=== PATIENT | female | born 1965 | race Caucasian/White ===

== ENCOUNTER 2020-03-09 12:39 | Outpatient (REF) | payer OTHER, SELFPAY ==
--- NOTE | 2020-03-09 | MM_ITS ---
EXAMINATION: BONE DENSITOMETRY CLINICAL INDICATION: Other specified disorders of bone density and structure. COMPARISON: Baseline BD dated 03/08/2018. TECHNIQUE: Using a rumr DXA System (software version: 13.1) manufactured by [employer], dual-energy x-ray absorptiometry was performed of the lumbar spine and left hip. The images are of good technical quality. Summary results are attached. FINDINGS: AP SPINE L1-L4: Current: BMD 1.128 g/cm2, Z-score 0.3, T-score -0.4, normal, 1.5% decrease from baseline (<5% change is not significant). Baseline: BMD 1.145 g/cm2. LEFT FEMUR, NECK: Current: BMD 0.857 g/cm2, Z-score -0.4, T-score -1.3, osteopenia. Baseline: BMD 0.827 g/cm2. LEFT FEMUR, TOTAL: Current: BMD 0.931 g/cm2, Z-score 0.0, T-score -0.6, normal, 11.6% increase from baseline (<5% change is not significant). Baseline: BMD 0.834 g/cm2. IDENTIFIED RISK FACTORS: Menopause. HISTORY OF FRACTURE: None listed. MEDICATIONS: Vitamin D. MM/XR DEXA axial skeleton IMPRESSION: 1. DIAGNOSIS: Osteopenia based on the lowest T-score value of -1.3 in the femoral neck applying World Health Organization criteria. 2. 10-YEAR FRACTURE RISK PREDICTION, FRAX: Major osteoporotic fracture (clinical spine, forearm, hip or shoulder) 6.3%. Hip fracture 0.4%. 3. Treatment Recommendations: NOF guidelines recommend consideration for treatment in postmenopausal women and men age 50 and older presenting with the following: -A hip or vertebral (clinical or morphometric) fracture. -T-score less than or equal to -2.5 at the femoral neck or spine after appropriate evaluation to exclude secondary causes. -Low bone mass at the hip or spine and a 10-year fracture probability by FRAX of greater than or equal to 3% for hip fracture or greater than or equal to 20% for major osteoporotic fracture based on the [place] adapted WHO algorithm. 4. Other Recommendations: All treatment decisions require clinical judgment and consideration of individual patient factors, including patient preferences, comorbidities, previous drug use, risk factors not captured in the FRAX model (e.g. frailty, falls, vitamin D deficiency, increased bone turnover, interval significant decline in bone density) and possible under or overestimation of fracture risk by FRAX. Additional medical evaluation for secondary cause of low bone mineral density may be appropriate. FUTURE SCAN RECOMMENDATION: People with diagnosed cases of osteoporosis or at high risk for fracture should have regular bone mineral density tests. For patients eligible for Medicare, routine testing is allowed once every 2 years. The testing frequency can be increased to one year for patients who have rapidly progressing disease, those who are receiving or discontinuing medical therapy to restore bone mass, or have additional risk factors.
== END 2020-03-09 12:40 | disposition home or self-care (01) ==
LOC: HO.MAMMO 12:39
PROVIDERS: PCP Internal Medicine; Visit Provider Internal Medicine
DX: Z13.820 Encounter for screening for osteoporosis (principal); M85.851 Other specified disorders of bone density and structure, right thigh; M85.80 Other specified disorders of bone density and structure, unspecified site; Z78.0 Asymptomatic menopausal state; Z79.899 Other long term (current) drug therapy
CPT/HCPCS: 77080

== ENCOUNTER 2020-03-16 07:35 | Outpatient (REF) | payer OTHER, SELFPAY ==
--- NOTE | 2020-03-16 07:39 | MM_ITS ---
EXAMINATION: MM SCREENING DIGITAL BREAST TOMOSYNTHESIS, BILATERAL CLINICAL INFORMATION: Screening. Asymptomatic. The lifetime risk of breast cancer based on the Tyrer-Cuzick Model is 6.8%. COMPARISON: Mammography: 03/11/2019 and multiple previous mammograms dating back to 09/28/2011 TECHNIQUE: Digital breast tomosynthesis is performed in both the craniocaudal and mediolateral oblique views along with computer-aided detection (CAD). Synthesized 2-D images are generated from the tomosynthesis. FINDINGS: The breasts are heterogeneously dense, which may obscure small masses (ACR BI-RADS breast composition Category c). Left breast: No suspicious masses, calcifications, architectural distortion, or other abnormalities are seen. Right breast: A very small portion of the inferior breast on mediolateral oblique is not imaged. No suspicious masses, calcifications, architectural distortion, or other abnormalities are seen in the visualized breast. MM/MM tomosynthesis screening BI IMPRESSION: 1. No mammographic evidence of malignancy in the left breast. 2. Very small portion of the inferior right breast is not imaged on mediolateral oblique view. No mammographic evidence of malignancy in the remainder of the right breast. ASSESSMENT: BI-RADS 0: Incomplete - Need Additional Imaging Evaluation. RECOMMENDATION: Technical recall. Repeat right mediolateral oblique view which can be obtained utilizing 2-D technique.
== END 2020-03-16 07:36 | disposition home or self-care (01) ==
LOC: HO.MAMMO 07:35
PROVIDERS: PCP Internal Medicine; Visit Provider Internal Medicine
DX: Z12.31 Encounter for screening mammogram for malignant neoplasm of breast (principal)
CPT/HCPCS: 77063; 77067

== ENCOUNTER 2020-06-01 08:55 | Outpatient (REF) | payer OTHER, SELFPAY ==
[2020-06-04 11:53] LABS: HPV mRNA E6/E7 rflx Not Detected (Not Detected)
== END 2020-06-01 08:56 | disposition home or self-care (01) ==
LOC: HO.LAB 08:55
PROVIDERS: PCP Internal Medicine; Visit Provider Obstetrics & Gynecology
DX: Z01.419 Encounter for gynecological examination (general) (routine) without abnormal findings (principal); Z11.51 Encounter for screening for human papillomavirus (HPV)
CPT/HCPCS: 36415; 87624; 88141; 88142

== ENCOUNTER 2021-03-22 10:21 | Outpatient (REF) | payer OTHER, SELFPAY ==
[2021-03-22 10:23] LABS: MANUAL DIFF FLAG NO
[2021-03-22 10:44] LABS: Appearance Urine HAZY; Color Urine YELLOW; Glucose Urine UA NEG (NEG); Leukocyte Esterase Urine NEG (NEG); Nitrite Urine NEG (NEG); Urine Blood NEG (NEG); Urine Ketones NEG (NEG); Urine Protein NEG (NEG-TRACE)
[2021-03-22 11:02] LABS: Basophils Percent Auto 0.7 % (0-2); Eosinophils Absolute Auto 0.2 X10*3/uL (0.0-0.4); Eosinophils Percent Auto 2.7 % (0-4); Hematocrit 39.7 % (37.0-47.0); Hemoglobin 13.3 g/dl (12.0-16.0); Imm Gran Abs Auto 0.01 X10*3/uL (0.00-0.03); Imm Gran Pct Auto 0.2 % (0.0-0.4); Lymphocytes Absolute Auto 1.9 X10*3/uL (1.2-4.9); Lymphocytes Percent Auto 33.6 % (20-40); Mean Corpuscular HGB Conc 33.5 g/dl (31.0-35.0); Mean Corpuscular Hemoglobin 30.6 pg (27.0-33.0); Mean Corpuscular Volume 91.3 fL (80.0-98.0); Mean Platelet Volume 10.9 fL (9.4-12.3); Monocytes Absolute Auto 0.4 X10*3/uL (0.1-1.2); Monocytes Percent Auto 7.1 % (2-11); Neutrophils Absolute Auto 3.1 x10*3/uL (2.0-8.3); Neutrophils Percent Auto 55.7 % (45-73); Platelet Count 266 X10*3/uL (160-400); Red Blood Count 4.35 X10*6/uL (4.20-5.50); Red Cell Distribution Width 12.2 % (11.0-16.0); White Blood Count 5.6 X10*3/uL (4.8-10.8)
[2021-03-22 11:15] LABS: Alanine Aminotransferase 15 U/L (0-31); Albumin Level 4.3 g/dL (3.5-5.0); Alkaline Phosphatase 59 U/L (39-117); Anion Gap 15 (12-20); Aspartate Amino Transferase 18 U/L (5-31); Bilirubin Total 1.1 mg/dL (0.0-1.0); Blood Urea Nitrogen 11 mg/dL (9-16); Calcium 9.2 mg/dL (8.4-10.2); Carbon Dioxide 26 mmol/L (22-29); Chloride 106 mmol/L (96-108); Cholesterol 189 mg/dL; Estimated Glomerular Filt Rate > 60; Glucose Fasting 94 mg/dL (60-99); HDL Cholesterol 50 mg/dL; LDL Cholesterol Calculated 122 mg/dl; Potassium 4.5 mmol/L (3.3-5.1); Sodium 142 mmol/L (135-145); Total Protein 6.8 g/dL (6.5-8.0); Triglycerides 89 mg/dL
[2021-03-22 11:40] LABS: Vitamin D 25-OH Total 22.7 ng/mL (>30)
== END 2021-03-22 10:22 | disposition home or self-care (01) ==
LOC: HO.LNP 10:21
PROVIDERS: Visit Provider Internal Medicine
DX: Z00.00 Encounter for general adult medical examination without abnormal findings (principal); E55.9 Vitamin D deficiency, unspecified; R79.9 Abnormal finding of blood chemistry, unspecified
CPT/HCPCS: 80053; 80061; 81003; 82306; 85025

== ENCOUNTER 2021-06-02 08:17 | Outpatient (REF) | payer OTHER, SELFPAY ==
[2021-06-04 13:37] LABS: HPV mRNA E6/E7 rflx Not Detected (Not Detected)
== END 2021-06-02 08:18 | disposition home or self-care (01) ==
LOC: HO.LAB 08:17
PROVIDERS: PCP Internal Medicine; Visit Provider Obstetrics & Gynecology
DX: Z01.419 Encounter for gynecological examination (general) (routine) without abnormal findings (principal); Z11.51 Encounter for screening for human papillomavirus (HPV)
CPT/HCPCS: 87624; 88142

== ENCOUNTER 2021-06-10 10:51 | Outpatient (REF) | payer OTHER, SELFPAY ==
--- NOTE | ~2021-06-10 | MM_ITS ---
EXAMINATION: MM SCREENING DIGITAL BREAST TOMOSYNTHESIS, BILATERAL CLINICAL INFORMATION: Screening. Asymptomatic. The lifetime risk of breast cancer based on the Tyrer-Cuzick Model is 10.6%. COMPARISON: Mammography: March 16, 2020 and studies dating back to November 06, 2015 TECHNIQUE: Digital breast tomosynthesis is performed in both the craniocaudal and mediolateral oblique views along with computer-aided detection (CAD). Synthesized 2D images are generated from the tomosynthesis. FINDINGS: The breasts are heterogeneously dense, which may obscure small masses (ACR BI-RADS breast composition Category c). There are no significant masses, abnormal calcifications, or other abnormalities. MM/MM tomosynthesis screening BI IMPRESSION: There are no significant changes from prior study. ASSESSMENT: BI-RADS 1: Negative RECOMMENDATION: Routine annual mammography screening. This patient's information was entered into a reminder system with a target due date for their next mammogram.
== END 2021-06-10 10:52 | disposition home or self-care (01) ==
LOC: HO.MAMMO 10:51
PROVIDERS: PCP Internal Medicine; Visit Provider Obstetrics & Gynecology
DX: Z12.31 Encounter for screening mammogram for malignant neoplasm of breast (principal)
CPT/HCPCS: 77063; 77067

== ENCOUNTER 2022-01-14 11:19 | Outpatient (REF) | payer OTHER, SELFPAY ==
[2022-01-14 12:18] LABS: Vitamin D 25-OH Total 63.6 ng/mL (>30)
== END 2022-01-14 11:20 | disposition home or self-care (01) ==
LOC: HO.LNP 11:19
PROVIDERS: Visit Provider Internal Medicine
DX: E55.9 Vitamin D deficiency, unspecified (principal)
CPT/HCPCS: 82306

== ENCOUNTER 2022-04-22 12:09 | Outpatient (REF) | payer OTHER, SELFPAY ==
[2022-04-22 12:13] LABS: MANUAL DIFF FLAG NO
[2022-04-22 13:01] LABS: Basophils Percent Auto 0.8 % (0-2); Eosinophils Absolute Auto 0.2 X10*3/uL (0.0-0.4); Hematocrit 38.5 % (37.0-47.0); Hemoglobin 12.7 g/dl (12.0-16.0); Imm Gran Abs Auto 0.01 X10*3/uL (0.00-0.03); Imm Gran Pct Auto 0.2 % (0.0-0.4); Lymphocytes Absolute Auto 1.9 X10*3/uL (1.2-4.9); Lymphocytes Percent Auto 36.9 % (20-40); Mean Corpuscular Hemoglobin 29.7 pg (27.0-33.0); Mean Platelet Volume 10.5 fL (9.4-12.3); Monocytes Absolute Auto 0.5 X10*3/uL (0.1-1.2); Monocytes Percent Auto 10.8 % (2-11); Neutrophils Absolute Auto 2.4 x10*3/uL (2.0-8.3); Neutrophils Percent Auto 47.3 % (45-73); Platelet Count 261 X10*3/uL (160-400); Red Blood Count 4.28 X10*6/uL (4.20-5.50); Red Cell Distribution Width 12.7 % (11.0-16.0)
[2022-04-22 13:05] LABS: Appearance Urine Clear; Color Urine Yellow; Glucose Urine UA Negative (Negative); Leukocyte Esterase Urine Negative (Negative); Nitrite Urine Negative (Negative); PH 7.5 (5.0-9.0); Specific Gravity - Urine 1.015 (1.005-1.025); Urine Blood Negative (Negative); Urine Ketones Negative (Negative); Urine Protein Trace mg/dL (Neg-Trace)
[2022-04-22 13:16] LABS: Bacteria Urine 1+ (None Seen); Hyaline Casts Urine 0-2 /LPF (0-2); WBC Urine 0-5 /HPF (0-5)
[2022-04-22 16:55] LABS: Alanine Aminotransferase 13 U/L (0-31); Albumin Level 4.3 g/dL (3.5-5.0); Alkaline Phosphatase 59 U/L (39-117); Anion Gap 10 (12-20); Aspartate Amino Transferase 19 U/L (5-31); Blood Urea Nitrogen 15 mg/dL (9-16); Calcium 9.2 mg/dL (8.4-10.2); Carbon Dioxide 30 mmol/L (22-29); Chloride 104 mmol/L (96-108); Cholesterol 197 mg/dL; Estimated Glomerular Filt Rate > 60; Glucose Fasting 91 mg/dL (60-99); HDL Cholesterol 50 mg/dL; LDL Cholesterol Calculated 131 mg/dl; Potassium 4.1 mmol/L (3.3-5.1); Sodium 140 mmol/L (135-145); Total Protein 6.5 g/dL (6.5-8.0); Triglycerides 82 mg/dL
== END 2022-04-22 12:10 | disposition home or self-care (01) ==
LOC: HO.LNP 12:09
PROVIDERS: Visit Provider Internal Medicine
DX: Z00.00 Encounter for general adult medical examination without abnormal findings (principal); R03.0 Elevated blood-pressure reading, without diagnosis of hypertension; E55.9 Vitamin D deficiency, unspecified
CPT/HCPCS: 80053; 80061; 81001; 82306; 85025

== ENCOUNTER 2022-04-26 11:32 | Outpatient (REF) | payer OTHER, SELFPAY ==
[2022-04-26 12:21] LABS: Appearance Urine Clear; Color Urine Yellow; Glucose Urine UA Negative (Negative); Leukocyte Esterase Urine Trace (Negative); Nitrite Urine Negative (Negative); PH 7.5 (5.0-9.0); Specific Gravity - Urine <= 1.005 (1.005-1.025); UMIC TRIGGER UA YES; Urine Blood Negative (Negative); Urine Ketones Negative (Negative); Urine Protein Negative (Neg-Trace)
[2022-04-26 12:25] LABS: Bacteria Urine Trace (None Seen); Hyaline Casts Urine 0-2 /LPF (0-2); RBC Urine 0-2 /HPF (0-2); WBC Urine 0-5 /HPF (0-5)
== END 2022-04-26 11:33 | disposition home or self-care (01) ==
LOC: HO.LNP 11:32
PROVIDERS: Visit Provider Internal Medicine
DX: R31.9 Hematuria, unspecified (principal)
CPT/HCPCS: 81001

== ENCOUNTER → 2022-06-06 08:15 | Outpatient (BNVA) | payer OTHER, SELFPAY | PROVIDERS: PCP Internal Medicine; Visit Provider Obstetrics & Gynecology | DX: Z13.89 Encounter for screening for other disorder (principal) ==

== ENCOUNTER 2022-06-14 10:29 | Outpatient (REF) | payer OTHER, SELFPAY ==
--- NOTE | ~2022-06-14 | MM_ITS ---
EXAMINATION: MM SCREENING DIGITAL BREAST TOMOSYNTHESIS, BILATERAL CLINICAL INFORMATION: Screening. Asymptomatic. The lifetime risk of breast cancer based on the Tyrer-Cuzick Model is 10%. COMPARISON: Mammography: 06/10/2021, 04/13/2020, 03/11/2019, 12/08/2017, 11/22/2016 TECHNIQUE: Digital breast tomosynthesis is performed in both the craniocaudal and mediolateral oblique views along with computer-aided detection (CAD). Synthesized 2D images are generated from the tomosynthesis. FINDINGS: The breasts are heterogeneously dense, which may obscure small masses (ACR BI-RADS breast composition Category c). There are no significant masses, abnormal calcifications, or other abnormalities. There are scattered parenchymal asymmetries similar to prior studies. No developing density or architectural abnormality. The axilla are unremarkable. No significant changes. MM/MM tomosynthesis screening BI IMPRESSION: No mammographic evidence of malignancy. ASSESSMENT: BI-RADS 2: Benign RECOMMENDATION: Routine annual mammography screening. This patient's information was entered into a reminder system with a target due date for their next mammogram.
== END 2022-06-14 10:30 | disposition home or self-care (01) ==
LOC: HO.MAMMO 10:29
PROVIDERS: PCP Internal Medicine; Visit Provider Internal Medicine
DX: Z12.31 Encounter for screening mammogram for malignant neoplasm of breast (principal)
CPT/HCPCS: 77063; 77067

== ENCOUNTER 2023-04-21 10:50 | Outpatient (REF) | payer OTHER, SELFPAY ==
[2023-04-21 10:54] LABS: MANUAL DIFF FLAG NO
[2023-04-21 11:07] LABS: Appearance Urine Clear; Color Urine Yellow; Glucose Urine UA Negative (Negative); Leukocyte Esterase Urine Negative (Negative); Nitrite Urine Negative (Negative); Urine Blood Negative (Negative); Urine Ketones Negative (Negative); Urine Protein Negative (Neg-Trace)
[2023-04-21 11:10] LABS: Basophils Absolute Auto 0.1 X10*3/uL (0.0-0.2); Basophils Percent Auto 1.3 % (0-2); Eosinophils Absolute Auto 0.2 X10*3/uL (0.0-0.4); Eosinophils Percent Auto 3.3 % (0-4); Hematocrit 39.5 % (37.0-47.0); Imm Gran Abs Auto 0.02 X10*3/uL (0.00-0.03); Imm Gran Pct Auto 0.4 % (0.0-0.4); Lymphocytes Absolute Auto 2.1 X10*3/uL (1.2-4.9); Lymphocytes Percent Auto 37.5 % (20-40); Mean Corpuscular HGB Conc 32.9 g/dl (31.0-35.0); Mean Corpuscular Hemoglobin 30.2 pg (27.0-33.0); Mean Corpuscular Volume 91.6 fL (80.0-98.0); Monocytes Absolute Auto 0.5 X10*3/uL (0.1-1.2); Monocytes Percent Auto 9.3 % (2-11); Neutrophils Absolute Auto 2.7 x10*3/uL (2.0-8.3); Neutrophils Percent Auto 48.2 % (45-73); Platelet Count 280 X10*3/uL (160-400); Red Blood Count 4.31 X10*6/uL (4.20-5.50); Red Cell Distribution Width 12.7 % (11.0-16.0); White Blood Count 5.5 X10*3/uL (4.8-10.8)
[2023-04-21 11:15] LABS: Bacteria Urine None Seen (None Seen); Hyaline Casts Urine 0-2 /LPF (0-2); RBC Urine 0-2 /HPF (0-2); Squamous Epithelial Cell Urine 0-2 /HPF (0-2); WBC Urine 0-5 /HPF (0-5)
[2023-04-21 11:28] LABS: Alanine Aminotransferase 10 U/L (0-31); Albumin Level 4.3 g/dL (3.5-5.0); Alkaline Phosphatase 56 U/L (39-117); Anion Gap 12 (12-20); Aspartate Amino Transferase 17 U/L (5-31); Blood Urea Nitrogen 14 mg/dL (9-16); Calcium 9.3 mg/dL (8.4-10.2); Carbon Dioxide 29 mmol/L (22-29); Chloride 106 mmol/L (96-108); Cholesterol 217 mg/dL (<200); Estimated Glomerular Filt Rate > 60; Glucose Fasting 93 mg/dL (60-99); HDL Cholesterol 57 mg/dL (>40); LDL Cholesterol Calculated 145 mg/dL (<100); Potassium 3.8 mmol/L (3.3-5.1); Sodium 143 mmol/L (135-145); Total Protein 6.9 g/dL (6.5-8.0); Triglycerides 78 mg/dL (<150)
[2023-04-21 11:31] LABS: Vitamin D 25-OH Total 42.6 ng/mL (>30)
== END 2023-04-21 10:51 | disposition home or self-care (01) ==
LOC: HO.LNP 10:50
PROVIDERS: Visit Provider Internal Medicine
DX: Z00.00 Encounter for general adult medical examination without abnormal findings (principal); E55.9 Vitamin D deficiency, unspecified; E03.0 Congenital hypothyroidism with diffuse goiter
CPT/HCPCS: 80053; 80061; 81001; 82306; 85025

== ENCOUNTER 2023-06-12 08:14 | Outpatient (AMB) | payer OTHER, SELFPAY ==
--- NOTE | 2023-06-12 08:17 | A.OFFVIS_ITS ---
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 No complaints. 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 Sexually active: Yes Sexual orientation: Straight/Heterosexual Gender identity: Female Female Reproductive History Menstrual Menopause type: natural Total pregnancies: 2 Full term: 2 Number of Living Children: 2 Date of last pap smear: 06/02/21 (neg pap and hpv) History of abnormal pap smear: Yes (02/18 lgsil 07/21 colpo shanon 1 06/03 +hov 07/04 colpo) Date of Mammogram: 06/14/22 (Birad 2) Review of Systems Const All systems reviewed & are unremarkable except as noted in HPI and below Card Reports as per HPI Resp Reports as per HPI GI Reports as per HPI and Reports no additional complaints Reports as per HPI Physical Exam Vital Signs: Last Vital Signs BP 138/76 06/12/23 08:19 BMI result Body Mass Index 26.7 Const General: cooperative, healthy appearing and comfortable Chest Chest palpation & inspection: normal inspection of the chest and normal palpation of entire chest wall Breast/axilla inspection: normal inspection of the breasts and normal inspection of the axillae Breast/axilla palpation: normal palpation of the breasts, normal palpation of the axillae and no axillary lymphadenopathy Resp Effort & Inspection: normal respiratory effort Auscultation: clear to auscultation bilaterally Percussion: percussion normal Cardio Palpation: normal PMI Rate: regular rate Rhythm: regular rhythm Heart sounds: no murmurs and no rubs Peripheral pulses: Peripheral pulses 2+ throughout GI Inspection: Yes normal to inspection Palpation (GI): Soft to palpation, nontender, no guarding, not rigid and No hepatosplenomegaly present Percussion: Yes normal to percussion Auscultation: normal bowel sounds Rectal Exam - Female: deferred General: Yes bladder normal to palpation External Female Exam: No lesion Speculum Exam - Vagina: normal appearance of the vagina, normal palpation, normal vaginal discharge and not erythematous Speculum Exam - Cervix: normal appearance of the cervix and normal palpation Bimanual exam- vagina & uterus: normal bimanual exam, normal palpation, uterine size normal, bladder normal to palpation, consistency normal and normal palpation Bimanual Exam- Adnexa, other: normal adnexae, no masses and no tenderness Assessment & Plan Assessment & Plan (1) Well woman exam: Code(s): Z01.419 - Encounter for gynecological examination (general) (routine) without abnormal findings Plan: Co testing not indicated this. Counseled the patient about the recommended dietary allowance of 1200 mg of Calcium & 600 IU of vitamin D. Mammogram ordered. The patient was instructed to perform monthly self-breast exams and schedule annual exam in a year. All questions answered and the patient verbalized understanding. Orders: Orders MM tomosynthesis screening BI Today Z12.31 - Encounter for screening mammogram for malignant neoplasm of breast Coding Level of Care Code Est Pt Prev Care 40-64y(89640) Diagnoses Well woman exam Z01.419
[2023-06-12 08:19] VITALS: BP 138/76; BMI 26.7
== END 2023-06-12 08:57 | disposition home or self-care (01) ==
PROVIDERS: PCP Internal Medicine; Visit Provider Obstetrics & Gynecology
DX: Z01.419 Encounter for gynecological examination (general) (routine) without abnormal findings (principal)
CPT/HCPCS: 99396

== ENCOUNTER → 2023-06-12 08:14 | Outpatient (BNVA) | payer OTHER, SELFPAY | PROVIDERS: Visit Provider Obstetrics & Gynecology ==

== ENCOUNTER 2023-06-20 10:24 | Outpatient (REF) | payer OTHER, SELFPAY ==
--- NOTE | ~2023-06-20 | MM_ITS ---
EXAMINATION: MM SCREENING DIGITAL BREAST TOMOSYNTHESIS, BILATERAL CLINICAL INFORMATION: Screening. Asymptomatic. COMPARISON: Mammography: This study is compared with prior exams dating back to 2018. TECHNIQUE: Digital breast tomosynthesis is performed in both the craniocaudal and mediolateral oblique views along with computer-aided detection (CAD). Synthesized 2D images are generated from the tomosynthesis. FINDINGS: The breasts are heterogeneously dense, which may obscure small masses (ACR BI-RADS breast composition Category c). There are no significant masses, abnormal calcifications, or other abnormalities. There are coarse benign calcifications associated with a subcentimeter, benign, oval mass in the deep third of the upper inner quadrant of the right breast. This mass is a fibroadenoma which is a benign entity. MM/MM tomosynthesis screening BI IMPRESSION: No mammographic evidence of malignancy. ASSESSMENT: BI-RADS BI-RADS 2 - Benign Findings RECOMMENDATION: Routine annual mammography screening. 1 year F/U This examination should not preclude the clinical evaluation of a suspicious palpable abnormality. This patient's information was entered into a reminder system with a target due date for their next mammogram.
== END 2023-06-20 10:25 | disposition home or self-care (01) ==
LOC: HO.MAMMO 10:24
PROVIDERS: PCP Internal Medicine; Visit Provider Internal Medicine
DX: Z12.31 Encounter for screening mammogram for malignant neoplasm of breast (principal)
CPT/HCPCS: 77063; 77067

== ENCOUNTER → 2023-06-20 10:45 | Outpatient (BNV) | payer OTHER, SELFPAY | PROVIDERS: PCP Internal Medicine; Visit Provider Radiology Diagnostic Radiology | DX: Z12.31 Encounter for screening mammogram for malignant neoplasm of breast (principal) | CPT/HCPCS: 77063; 77067 ==

== ENCOUNTER 2024-05-02 10:56 | Outpatient (REF) | payer OTHER, SELFPAY ==
--- OUTSIDE RECORDS SUMMARY | 2024-05-02 10:59 | XMS_ITS ---
Author Organization Nikhil Pozo MD Address [address] [place] [phone] Care Team Providers Care Field Identification Specialist Name Role Phone Nikhil Pozo Primary Care Provider ALLERGIES No Known Allergies REASON FOR VISIT 6 month BP MEDICATIONS Medication SIG (Take, Route, Frequency, Duration) Notes Start Date End Date Status Vitamin D3 25 MCG (1000 UT) TAKE 1 TABLET BY MOUTH EVERY DAY FOR 30 DAYS for 30 Active Meloxicam 15 MG 1 tablet Orally Once a day Active VITAL SIGNS BMI 27.43 kg/m2 10/30/2023 Blood pressure systolic 120 mm Hg 10/30/19 24 Blood pressure diastolic 80 mm Hg 024 Height 62 in 10/30/2023 Weight 150 lbs 10/30/2023 weight is up 4 pounds since 04-28-23 Encounters Encounter Location Date Provider Diagnosis Nikhil Pozo MD [address] [place] [address] [place] [phone] 10/30/2023 Nikhil Pozo Elevated BP without diagnosis of hypertension R03.0 ASSESSMENTS Encounter Date Diagnosis Assessment Notes Treatment Notes Treatment Clinical Notes 10/30/2023 Elevated BP without diagnosis of hypertension (ICD-10 - R03.0) blood pressure on no treatment is normal. no need for treatment at this time PLAN OF TREATMENT Treatment Notes Assessment Notes Elevated BP without diagnosi s of hypertension blood pressure on no treatment is normal . no need for treatment at this time Next Appt Details Provider Name:Nikhil hammond, 05/09/2024 09:30:00 AM, [address] [place] [address], Suite [facility], [place], [place], [phone], Progress Notes * Examination Category Sub-Category Detail Notes General Examination GENERAL APPEARANCE: alert, w ell hydrated, in no distress HEAD: normocephalic HEART: regular rate and rhy thm LUNGS: no wheezes, rales, r honchi, good air movement, clear to auscultation bilaterally SKIN: good turgor
--- OUTSIDE RECORDS SUMMARY | 2024-05-02 10:59 | XMS_ITS ---
Author Organization Nikhil Pozo MD Address [address] [place] [phone] Care Team Providers Care Senior Fire Protection Engineer Name Role Phone Nikhil Pozo Primary Care Provider REASON FOR VISIT yearly fasting labs Encounters Encounter Location Date Provider Diagnosis Nikhil Pozo MD [address] [place] [address] Drive [address] [place] [id number] 05/02/2024 Nikhil Pozo Blood tests for routine general physical examination Z00.00 and Vitamin D deficiency E55.9 ASSESSMENTS Encounter Date Diagnosis Assessment Notes Treatment Notes Treatment Clinical Notes 05/02/2024 Blood tests for routine general physical examination (ICD-10 - Z00.00) 05/02/2024 Vitamin D deficiency (ICD-10 - E55.9) PLAN OF TREATMENT Pending Test Test Name Order Date Complete Blood Count Auto Diff 4 Comprehensive [place]. Panel Fast 4 Lipid Panel 05/02/2024 Vitamin D 25-OH Total 05/02/2024 UA ClnCatch+Micro w/rflx Cult 05/02/2024 Next Appt Details Provider Name:Nikhil hammond, 05/09/2024 09:30:00 AM, [address] [facility], [address], [place], [place], [phone],
[2024-05-02 11:00] LABS: MANUAL DIFF FLAG NO
--- OUTSIDE RECORDS SUMMARY | 2024-05-02 11:00 | XMS_ITS ---
Author Organization Nikhil Pozo MD Address [address] [place] [phone] Care Team Providers Care Inhalation Therapy Aide Name Role Phone Nikhil Pozo Primary Care Provider REASON FOR VISIT refill MEDICATIONS Medication SIG (Take, Route, Frequency, Duration) Notes Start Date End Date Status Vitamin D-[address] 25 MCG (1000 UT) 1 tablet Orally Once a day for 30 days 03/12/2019 Active Encounters Encounter Location Date Provider Diagnosis Nikhil Pozo MD [address] [place] [address] [place] [phone] 05/19/2023 Nikhil Pozo Vitamin D deficiency E55.9 ASSESSMENTS Encounter Date Diagnosis Assessment Notes Treatment Notes Treatment Clinical Notes 05/19/2023 Vitamin D deficiency (ICD-10 - E55.9) PLAN OF TREATMENT Medication Medication Name Sig Start Date Stop Date Notes Vitamin D-[address] 25 MCG (1000 UT) 1 tablet Orally Once a day for 30 days 03/12/2019 Next Appt Details Provider Name:Nikhil Batista ier, 05/09/2024 09:30:00 AM, [address] [facility], Suite [facility], [place], [place], [phone],
--- OUTSIDE RECORDS SUMMARY | 2024-05-02 11:00 | XMS_ITS | Patient Health Record ---
Author Organization Nikhil Pozo MD Address [address] [place], [place] [phone] Care Team Providers Care Safety Clothing And Equipment Developer Name Role Phone Nikhil Pozo Primary Care Provider ALLERGIES No Known Allergies RESULTS Component Value Reference Range Notes MM tomosynthesis screening B I Reviewed date:07/16/2023 05:23:16 PM Interpretation: Performing Lab: Notes/Report: [address] [place] [address] Mammography Report Signed Patient: Dyaan Gordillo MR#: [id number] : 1965 Acct:[id number] Age/Sex: 57 / F ADM Date: 06/20/23 Loc: HO.MAMMO Attending Dr: Nikhil Pozo MD Ordering Physician: Nikhil Pozo MD Results: 2Be nign Findings Date of Service: 06/20/23 Follow Up: 1 Year From [facility] Mammogram Procedure(s): MM tomosynthesis screening BI Accession Number(s): [id number] cc: Nikhil Pozo MD EXAMINATION: MM SCREENING DIGITAL BREAST TOMOSYNTHESIS, BILATERAL CLINICAL INFORMATION: Screening. Asymptomatic. COMPARISON: Mammography: This study is compared with prior exams dating back to 2018. TECHNIQUE: Digital breast tomosynthesis is performed in both the craniocaudal and mediolateral oblique views along with computer-aided detection (CAD). Synthesized 2D images are generated from the tomosynthesis. FINDINGS: The breasts are heterogeneously dense, which may obscure small masses (ACR BI-RADS breast composition Category c). There are no significant masses, abnormal calcifications, or other abnormalities. There are coarse benign calcifications associated with a subcentimeter, benign, oval mass in the deep third of the upper inner quadrant of the right breast. This mass is a fibroadenoma which is a benign entity. MM/MM tomosynthesis screening BI IMPRESSION: No mammographic evidence of malignancy. ASSESSMENT: BI-RADS BI-RADS 2 - Benign Findings RECOMMENDATION: Routine annual mammography screening. 1 year F/U This examination should not preclude the clinical evaluation of a suspicious palpable abnormality. This patient's information was entered into a reminder system with a target due date for their next mammogram. 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 No Information MEDICATIONS Medication SIG (Take, Route, Frequency, Duration) Notes Start Date End Date Status Vitamin D3 25 MCG (1000 UT) TAKE 1 TABLET BY MOUTH EVERY DAY FOR 30 DAYS for 30 Active Meloxicam 15 MG 1 tablet Orally Once a day Active IMMUNIZATIONS Vaccine Route Administration Date Status Comme nts Fluarix Quadrivalent Unknown 01/23/2017 Administered at work [employer] Flu Vaccine Unknown 02/28/2018 Administered TDaP Unknown 03/01/2018 Administered Fluarix Quadrivalent Unknown 03/04/2019 Administered At work Tetanus Unknown 03/01/2018 Administered Fluarix Quadrivalent Unknown 03/12/2020 Administered SARS-COV-2 Pfizer Unknown 09/10/2020 Administered SARS-COV-2 Pfizer Unknown 10/01/2020 Administered Fluarix Quadrivalent Unknown 03/08/2021 Administered Tetanus Unknown 03/01/2018 Pending SOCIAL HISTORY Tobacco Use: Social History Observation Description Date Details (start date - stop date) Never Smoker NA - NA Sex Assigned At : Social History Observation Description Sex Assigned At Unknown Tobacco Use/Smoking Question Answer Notes Patient is a nonsmoker Additional Findings: Tobacco Non-User Cu rrent non-smoker, currently using no form of tobacco Alcohol Screen Question Answer Notes Did you have a drink containing alcohol in the p ast year? 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) Active confirmed 406599166 Problem Vitamin D deficiency (E55.9) Active confirmed Vitamin D deficiency (00719201) Problem Osteopenia determined by x-ray (M85.80) Active confirmed Osteopenia (disorder) (142356002) Problem Acute right-sided low back pain with right-sided sciatica (M54.41) Active confirmed Sciatica (93804843) VITAL SIGNS Blood pressure diastolic 80 mm Hg 10/30/2023 thea ght is up 4 pounds since 04-28-23 Height 62 in 10/30/2023 weight is up 4 pounds since 04-28-23 Blood pressure systolic 120 mm Hg 10/30/2023 weig ht is up 4 pounds since 04-28-23 Weight 150 lbs 10/30/2023 weight is up 4 pounds since 04-28-23 BMI 27.43 kg/m2 10/30/2023 weight is up 4 pounds since 04-28-23 Encounters Encounter Location Date Provider Diagnosis Nikhil Pozo MD [address] [place] [id number] 05/02/2024 Nikhil Pozo Blood tests for routine general physical examination Z00.00 and Vitamin D deficiency E55.9 [address] P[address] MD [address] [place] [id number] 10/30/2023 Nikhil Pozo Elevated BP without diagnosis of hypertension R03.0 Nikhil Pozo MD [address] [place] [id number] 05/19/2023 Nikhil Pozo Vitamin D deficiency E55.9 ASSESSMENTS Encounter Date Diagnosis Assessment Notes Treatment Notes Treatment Clinical Notes 05/02/2024 Blood tests for routine general physical examination (ICD-10 - Z00.00) 10/30/2023 Elevated BP without diagnosis of hypertension (ICD-10 - R03.0) blood pressure on no treatment is normal. no need for treatment at this time 05/19/2023 Vitamin D deficiency (ICD-10 - E55.9) 05/02/2024 Vitamin D deficiency (ICD-10 - E55.9) PLAN OF TREATMENT Pending Test Test Name Order Date Electrocardiogram (EKG) 03/01/2018 Complete Blood Count Auto Diff 4 Comprehensive [place]. Panel Fast 4 Lipid Panel 05/02/2024 Vitamin D 25-OH Total 05/02/2024 UA ClnCatch+Micro w/rflx Cult 05/02/2024 Future Test Test Name Order Date BONE DENSITY DEXA 03/10/2020 Next Appt Details Provider Name:Nikhilgigi Batista ier, 05/09/2024 09:30:00 AM, [address] [place] [address], [address], [place], [place], [phone], Insurance Providers Payer Name Payer Address Payer Phone Subscriber Number Group Number Insured Name Patient Relationship to Insured Coverage Start Date Coverage End Date [address] [facility] [place]OW [phone] [id number] Dyana Gordillo Self - patient is the insured MEDICAL (GENERAL) HISTORY Medical History History ICD Code had abnormal pap smear over 10 years ago bone density done 02/2018 - repeat 2 yea rs 07/29/[address] Estrada - juan pablo vogt 10 yrs
[2024-05-02 11:22] LABS: Appearance Urine Cloudy; Color Urine Yellow; Glucose Urine UA Negative (Negative); Leukocyte Esterase Urine Negative (Negative); Nitrite Urine Negative (Negative); Specific Gravity - Urine 1.015 (1.005-1.025); Urine Blood Negative (Negative); Urine Ketones Negative (Negative); Urine Protein Negative (Neg-Trace)
[2024-05-02 11:24] LABS: Basophils Percent Auto 0.8 % (0-2); Eosinophils Absolute Auto 0.2 X10*3/uL (0.0-0.4); Eosinophils Percent Auto 3.4 % (0-4); Hematocrit 39.1 % (37.0-47.0); Hemoglobin 13.2 g/dl (12.0-16.0); Imm Gran Abs Auto 0.01 X10*3/uL (0.00-0.03); Imm Gran Pct Auto 0.2 % (0.0-0.4); Lymphocytes Absolute Auto 2.1 X10*3/uL (1.2-4.9); Lymphocytes Percent Auto 42.3 % (20-40); Mean Corpuscular HGB Conc 33.8 g/dl (31.0-35.0); Mean Corpuscular Hemoglobin 31.3 pg (27.0-33.0); Mean Corpuscular Volume 92.7 fL (80.0-98.0); Mean Platelet Volume 10.6 fL (9.4-12.3); Monocytes Absolute Auto 0.5 X10*3/uL (0.1-1.2); Monocytes Percent Auto 9.2 % (2-11); Neutrophils Absolute Auto 2.2 x10*3/uL (2.0-8.3); Neutrophils Percent Auto 44.1 % (45-73); Platelet Count 287 X10*3/uL (160-400); Red Blood Count 4.22 X10*6/uL (4.20-5.50); Red Cell Distribution Width 12.8 % (11.0-16.0)
[2024-05-02 11:25] LABS: Bacteria Urine None Seen (None Seen); Hyaline Casts Urine 0-2 /LPF (0-2); RBC Urine 0-2 /HPF (0-2); Squamous Epithelial Cell Urine 0-2 /HPF (0-2); WBC Urine 0-5 /HPF (0-5)
[2024-05-02 11:41] LABS: Alanine Aminotransferase 16 U/L (0-31); Albumin Level 4.4 g/dL (3.5-5.0); Alkaline Phosphatase 62 U/L (39-117); Anion Gap 9 (12-20); Aspartate Amino Transferase 25 U/L (5-31); Bilirubin Total 1.1 mg/dL (0.0-1.0); Blood Urea Nitrogen 15 mg/dL (9-16); Calcium 9.1 mg/dL (8.4-10.2); Carbon Dioxide 30 mmol/L (22-29); Chloride 107 mmol/L (96-108); Cholesterol 220 mg/dL (<200); Estimated Glomerular Filt Rate > 60; Glucose Fasting 95 mg/dL (60-99); HDL Cholesterol 51 mg/dL (>40); LDL Cholesterol Calculated 147 mg/dL (<100); Potassium 4.1 mmol/L (3.3-5.1); Sodium 142 mmol/L (135-145); Total Protein 7.1 g/dL (6.5-8.0); Triglycerides 112 mg/dL (<150)
[2024-05-02 11:56] LABS: Vitamin D 25-OH Total 60.8 ng/mL (>30)
== END 2024-05-02 10:57 | disposition home or self-care (01) ==
LOC: HO.LNP 10:56
PROVIDERS: Visit Provider Internal Medicine
DX: Z00.00 Encounter for general adult medical examination without abnormal findings (principal); E55.9 Vitamin D deficiency, unspecified
CPT/HCPCS: 80053; 80061; 81001; 82306; 85025

== ENCOUNTER 2024-06-18 08:27 | Outpatient (REF) | payer OTHER, SELFPAY ==
[2024-06-27 15:12] LABS: HPV Genotype 16 Negative (Negative); HPV Genotype 18 Negative (Negative); HPV High Risk Negative (Negative)
== END 2024-06-18 08:28 | disposition home or self-care (01) ==
LOC: HO.LNP 08:27
PROVIDERS: PCP Internal Medicine; Visit Provider Obstetrics & Gynecology
DX: Z01.419 Encounter for gynecological examination (general) (routine) without abnormal findings (principal)
CPT/HCPCS: 87626; 88175

== ENCOUNTER 2024-06-18 08:27 | Outpatient (AMB) | payer OTHER, SELFPAY ==
--- NOTE | 2024-06-18 08:53 | MHC.OFFVIS ---
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 No complaints. 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 Sexual orientation: Straight/Heterosexual Gender identity: Female Female Reproductive History Menstrual Total pregnancies: 2 Full term: 2 Date of last pap smear: 06/02/21 (negative hpv, negative pap smear) Date of Mammogram: 06/20/23 (bi rad 2) Review of Systems Const All systems reviewed & are unremarkable except as noted in HPI and below Card Reports as per HPI Resp Reports as per HPI GI Reports as per HPI and Reports no additional complaints Reports as per HPI Physical Exam Const General: cooperative, healthy appearing and comfortable Chest Chest palpation & inspection: normal inspection of the chest and normal palpation of entire chest wall Breast/axilla inspection: normal inspection of the breasts and normal inspection of the axillae Breast/axilla palpation: normal palpation of the breasts, normal palpation of the axillae and no axillary lymphadenopathy Resp Effort & Inspection: normal respiratory effort Auscultation: clear to auscultation bilaterally Percussion: percussion normal Cardio Palpation: normal PMI Rate: regular rate Rhythm: regular rhythm Heart sounds: no murmurs and no rubs Peripheral pulses: Peripheral pulses 2+ throughout GI Inspection: Yes normal to inspection Palpation (GI): Soft to palpation, nontender, no guarding, not rigid and No hepatosplenomegaly present Percussion: Yes normal to percussion Auscultation: normal bowel sounds Rectal Exam - Female: deferred General: Yes bladder normal to palpation External Female Exam: No lesion Speculum Exam - Vagina: normal appearance of the vagina, normal palpation, normal vaginal discharge and not erythematous Speculum Exam - Cervix: normal appearance of the cervix and normal palpation Bimanual exam- vagina & uterus: normal bimanual exam, normal palpation, uterine size normal, bladder normal to palpation, consistency normal and normal palpation Bimanual Exam- Adnexa, other: normal adnexae, no masses and no tenderness Assessment & Plan Assessment & Plan (1) Well woman exam: Code(s): Z01.419 - Encounter for gynecological examination (general) (routine) without abnormal findings Category: Medical Plan: Co testing done. Counseled the patient about the recommended dietary allowance of 1200 mg of Calcium & 600 IU of vitamin D. Mammogram ordered. The patient was instructed to perform monthly self-breast exams and schedule annual exam in a year. All questions answered and the patient verbalized understanding. Orders: Orders MM tomosynthesis screening BI Today Z12.31 - Encounter for screening mammogram for malignant neoplasm of breast Coding Level of Care Code Est Pt Prev Care 40-64y(53950) Diagnoses Well woman exam Z01.419
== END 2024-06-18 09:27 | disposition home or self-care (01) ==
LOC: HO.HWS 08:27
PROVIDERS: PCP Internal Medicine; Visit Provider Obstetrics & Gynecology
DX: Z01.419 Encounter for gynecological examination (general) (routine) without abnormal findings (principal)
CPT/HCPCS: 99396; 99459

== ENCOUNTER 2024-07-09 07:34 | Outpatient (REF) | payer OTHER, SELFPAY ==
--- OUTSIDE RECORDS SUMMARY | 2024-07-09 07:36 | XMS_ITS ---
Author Organization Nikhil Pozo MD Address [address] [place] [address] [place] [phone] Care Team Providers Care Bilingual Call Center Representative Name Role Phone Nikhil Pozo Primary Care Provider [phone] Allergies No Known Allergies REASON FOR VISIT 6 month BP Medications Medication SIG (Take, Route, Frequency, Duration) Notes Start Date End Date Status Vitamin D3 25 MCG (1000 UT) TAKE 1 TABLET BY MOUTH EVERY DAY FOR 30 DAYS for 30 Active Meloxicam 15 MG 1 tablet Orally Once a day Active Vital Signs Blood pressure systolic 120 mm Hg 10/30/19 24 Blood pressure diastolic 80 mm Hg 024 Height 62 in 10/30/2023 Weight 150 lbs 10/30/2023 BMI 27.43 kg/m2 10/30/2023 weight is up 4 pounds since 04-28-23 Encounters Encounter Location Date Provider Diagnosis Nikhil Pozo MD [address] [place] [address] [place] [phone] 10/30/2023 Nikhil oPzo Elevated BP without diagnosis of hypertension R03.0 Assessments Encounter Date Diagnosis (ICD Code) Assessment Notes Treatment Notes Treatment Clinical Notes Section Notes 10/30/2023 Elevated BP without diagnosis of hypertension (ICD-10 - R03.0) blood pressure on no treatment is normal. no need for treatment at this time Plan Of Treatment Treatment Notes Assessment Notes Elevated BP without diagnosi s of hypertension blood pressure on no treatment is normal . no need for treatment at this time Next Appt Details Provider Name:Nikhil hammond, 05/06/2025 07:15:00 AM, [address] [place] [address], [place] [address], [place], [place], [phone], Provider Name:Nikhil Batista ier, 05/13/2025 09:30:00 AM, [address], [address], [place], [phone], Progress Notes * Dyana GORDILLO ADOB:1965 (58 yo F)Acc No.[id number]:10/30/2023 Progress Notes Patient:?Dyana Gordillo A Provider:?Nikhil Pozo MD :1965???Age:58 Y???Sex:Female D ate:10/30/2023 Address:[address] [place] [address] [facility] Subjective: * Chief Complaints: * ???6 month BP * HPI: ???Symptom(s):? patient is a 58 yo female here for 6 month follow up visit.. * ROS:?General/Constitutional:?Denies?Chills.?Denies?Fatigue.?Denies?Fever.?Denies?Headache.?ENT:?Patient denies?decreased sense of smell , any loss of taste , sore throat.?Denies?Sore throat.?Respiratory:?Denies?Cough.?Denies?Shortness of breath at rest.?Denies?Shortness of breath with exertion.?Cardiovascular:?Denies?Chest pain at rest.?Denies?Chest pain with exertion.?Denies?Dizziness.?Denies?Palpitations.?Denies?Shortness of breath.?Gastrointestinal:?Denies?Diarrhea.?Denies?Nausea.?Musculoskeletal:?Patient denies?muscle aches.?Peripheral Vascular:?Patient denies?red and blue toes.? * Medical History:? * Surgical History:? * Hospitalization/Major Diagno stic Procedure:? * Medications:?TakingMeloxicam 15 MG Tablet 1 tablet Orally Once a dayVitamin D3 25 MCG (1000 UT) Tablet TAKE 1 TABLET BY MOUTH EVERY DAY FOR 30 DAYS Medication List reviewed and reconciled with the patientTaking Meloxicam 15 MG Tablet 1 tablet Orally Once a dayTaking Vitamin D3 25 MCG (1000 UT) Tablet TAKE 1 TABLET BY MOUTH EVERY DAY FOR 30 DAYS Medication List reviewed and reconciled with the patient * Allergies:?N.K.D.A.yes[Aller gies Verified] Objective: * Vitals:?Ht: 62, Wt:150, BMI: 27.43, BP: 156/84,repeat:120/80, Repeat BP:120/80 weight is up 4 pounds since 04-28-23. * Examination: ???General Examination: ?GENERAL APPEARANCE:? alert, well hydrated, in no distress .?HEAD:? normocephalic.?SKIN:? good turgor.?HEART:? regular rate and rhythm.?LUNGS:? no wheezes, rales, rhonchi, good air movement, clear to auscultation bilaterally.? Assessment: * Assessment: 1.?Elevated BP without diagn osis of hypertension - R03.0 (Primary)? Plan: * Treatment: * Procedure Codes:? * * Sign off status: Completed true * Provider:?Nikhil Pozo MD Date:?0 10/30/2023 Generated for Tanesha tirado/Ibis/Manjuitting on:?07/09/2024 07:36 AM EST History and Physical Notes * HPI (History of Present Illness) Category Sub-Category Detail Notes Category Not es Symptom(s) patient is a 58 yo female here for 6 month follow up visit.. Examination Category Sub-Category Detail Notes Category Not es General Examination GENERAL APPEARANCE: alert, w ell hydrated, in no distress HEAD: normocephalic HEART: regular rate and rhy thm LUNGS: no wheezes, rales, r honchi, good air movement, clear to auscultation bilaterally SKIN: good turgor
--- OUTSIDE RECORDS SUMMARY | 2024-07-09 07:36 | XMS_ITS | Patient Health Record ---
Author Organization Nikhil Pozo MD Address [address] [place], [place] [phone] Care Team Providers Care Association Executive Name Role Phone Nikhil Pozo Primary Care Provider Allergies No Known Allergies Results Component Value Reference Range Notes Complete Blood Count Auto Di ff Reviewed date:05/02/2024 12:25:43 PM Interpretation: Performing Lab:[facility], [address] [place] [phone] Notes/Report: White Blood Count 5.0 4.8-10.8 X10*3/uL Red Blood Count 4.22 4.20-5.50 X10*6/uL Hemoglobin 13.2 12.0-16.0 g/dl Hematocrit 39.1 37.0-47.0 % Mean Corpuscular Volume 92.7 80.0-98.0 fL Mean Corpuscular Hemoglobin 31.3 27.0-33.0 pg Mean Corpuscular HGB Conc 33.8 31.0-35.0 g/dl Red Cell Distribution Width 12.8 11.0-16.0 % Platelet Count 287 160-400 X10*3/uL Mean Platelet Volume 10.6 9.4-12.3 fL Neutrophils Percent Auto 44.1 45-73 % Imm Gran Pct Auto 0.2 0.0-0.4 % Lymphocytes Percent Auto 42.3 20-40 % Monocytes Percent Auto 9.2 2-11 % Eosinophils Percent Auto 3.4 0-4 % Basophils Percent Auto 0.8 0-2 % NRBC Pct Auto 0.0 0.0-0.2 /100WBC Neutrophils Absolute Auto 2.2 2.0-8.3 x10*3/u L Imm Gran Abs Auto 0.01 0.00-0.03 X10*3/uL Lymphocytes Absolute Auto 2.1 1.2-4.9 X10*3/u L Monocytes Absolute Auto 0.5 0.1-1.2 X10*3/uL Eosinophils Absolute Auto 0.2 0.0-0.4 X10*3/u L Basophils Absolute Auto 0.0 0.0-0.2 X10*3/uL NRBC Abs Auto 0.000 0.0-0.012 X10*3/uL Comprehensive [place]. Panel Fa st Reviewed date:05/02/2024 12:19:37 PM Interpretation: Performing Lab:[facility], [address] [place] [phone] Notes/Report: Sodium 142 135-145 mmol/L Potassium 4.1 3.3-5.1 mmol/L Chloride 107 96-108 mmol/L Carbon Dioxide 30 22-29 mmol/L Anion Gap 9 12-20 Blood Urea Nitrogen 15 9-16 mg/dL Creatinine 0.83 0.5-1.4 mg/dL Estimated Glomerular Filt Rate > 60 Chronic Kidney Disease: Estimated GFR < 60 mL/min/1.73m2 Severe Kidney Disease: Estimated GFR < 15 mL/min/1.73m2 Glucose Fasting 95 60-99 mg/dL Calcium 9.1 8.4-10.2 mg/dL Bilirubin Total 1.1 0.0-1.0 mg/dL Aspartate Amino Transferase 25 5-31 U/L Alanine Aminotransferase 16 0-31 U/L Total Protein 7.1 6.5-8.0 g/dL Albumin Level 4.4 3.5-5.0 g/dL Alkaline Phosphatase 62 39-117 U/L Lipid Panel Reviewed date:05/02/2024 12:20:46 PM Interpretation: Performing Lab:[address] [phone] Notes/Report: Triglycerides 112 <150 mg/dL Desirable Triglyceride: less than 150 mg/dL Borderline High Triglyceride 150-199 mg/dL High Triglyceride: 200-499 mg/dL Very High Triglyceride: greater than or equal to 5OO mg/dL Cholesterol 220 <200 mg/dL Desirable Cholesterol: less than 200 mg/dL Borderline High Cholesterol: 200-239 mg/dL High Cholesterol: greater than 239 mg/dL LDL Cholesterol Calculated 147 <100 mg/dL Desirable LDL: less than 100 mg/dL Near Optimal/Above Optimal LDL: 110-129 mg/dL Borderline High LDL: 130-159 mg/dL High LDL: 160-189 mg/dL Very High LDL: greater than or equal to 190 mg/dL HDL Cholesterol 51 >40 mg/dL Desirable HDL: greater than 40 mg/dL Note: This HDL assay may give artificially low results in patients with liver disease. Vitamin D 25-OH Total Reviewed date:05/02/2024 12:19:16 PM Interpretation: Performing Lab:[address] [phone] Notes/Report: Vitamin D 25-OH Total 60.8 >30 ng/mL Health Based Reference Values* < 20 ng/mL Deficient 20-30 ng/mL Insufficient > 30 ng/mL Sufficient *Lorena ALMAGUER. N Engl J Med. 2007;357:266-280 Care must be taken in interpreting Vitamin D results from different laboratories and methodologies. Published data demonstrated that results from patients undergoing hemodialysis may show a negative bias when tested with various automated 25-OH vitamin D assays when compared to LC-MS/MS. When testing samples from patients whose predominant form of Vitamin D is Vitamin D2, such as patients receiving Vitamin D2 supplementation, results that are subtherapeutic should be confirmed with another method such as LC-MS/MS. UA ClnCatch+Micro w/rflx Cul t Reviewed date:05/02/2024 12:27:22 PM Interpretation: Performing Lab:[address] [phone] Notes/Report: Urine, Clean Catch Color Urine Yellow Appearance Urine Cloudy PH 7.0 5.0-9.0 Glucose Urine UA Negative Negative mg/dL Urine Blood Negative Negative Specific [place] - Urine 1.015 1.005-1.025 Urine Protein Negative Neg-Trace mg/dL Urine Ketones Negative Negative mg/dL Nitrite Urine Negative Negative Leukocyte Esterase Urine Negative Negative RBC Urine 0-2 0-2 /HPF WBC Urine 0-5 0-5 /HPF Squamous Epithelial Cell Urine 0-2 0-2 /HPF Bacteria Urine None Seen None Seen Hyaline Casts Urine 0-2 0-2 /LPF HPV High risk Reviewed date:06/27/2024 04:56:22 PM Interpretation: Performing Lab:[facility], [address] [place] [phone] Notes/Report: HPV High Risk Negative Negative HPV Genotype 16 Negative Negative HPV Genotype 18 Negative Negative HPV testing performed at [facility] (CLIA #[id number]), [address] [place] [id number]. Testing for HPV was performed using the [employer] system. The presence of HPV in the female genital tract is associated with a number of diseases, including cervical carcinoma. The HPV DNA high risk pool tests for HPV 31, 33, 35, 39, 45, 51, 52, 56, 58, 59, 66 and 68. The testing for HPV 16 and 18 genotypes has also been performed. A positive result indicates detection of nucleic acid sequences from one or more subtypes, whereas a negative result indicates such sequences were not detected. Reason For Referral No Information Medications Medication SIG (Take, Route, Frequency, Duration) Notes Start Date End Date Status Meloxicam 15 MG 1 tablet Orally Once a day Active Vitamin D3 25 MCG (1000 UT) TAKE 1 TABLET BY MOUTH EVERY DAY FOR 30 DAYS for 30 Active Immunizations Vaccine Route Administration Date Status Comme nts Fluarix Quadrivalent Unknown 01/23/2017 Administered at work [employer] Flu Vaccine Unknown 02/28/2018 Administered TDaP Unknown 03/01/2018 Administered Fluarix Quadrivalent Unknown 03/04/2019 Administered At work Tetanus Unknown 03/01/2018 Administered Fluarix Quadrivalent Unknown 03/12/2020 Administered SARS-COV-2 Pfizer Unknown 09/10/2020 Administered SARS-COV-2 Pfizer Unknown 10/01/2020 Administered Fluarix Quadrivalent Unknown 03/08/2021 Administered Tetanus Unknown 03/01/2018 Pending Social History Tobacco Use: Social History Observation Description Date Details (start date - stop date) Never Smoker NA - NA Tobacco Use/Smoking Question Answer Notes Patient is a nonsmoker Additional Findings: Tobacco Non-User Cu rrent non-smoker, currently using no form of tobacco Alcohol Screen Question Answer Notes Did you have a drink containing alcohol in the p ast year? 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 confirmed Problem Sciatica (72411405) Acute right-sided low back pain with right-sided sciatica (M54.41) Active confirmed Problem 794426645 Elevated BP without diagnosis of hypertension (R03.0) Active confirmed Problem Osteopenia (disorder) (713921137) Osteopenia determined by x-ray (M85.80) Active confirmed Vital Signs Blood pressure diastolic 84 mm Hg 05/09/2024 thea ght is down 2 pounds since 10-30-23 Height 62 in 05/09/2024 weight is down 2 pounds since 10-30-23 Blood pressure systolic 142 mm Hg 05/09/2024 weig ht is down 2 pounds since 10-30-23 Weight 148 lbs 05/09/2024 weight is down 2 pounds since 10-30-23 BMI 27.07 kg/m2 05/09/2024 weight is down 2 pounds since 10-30-23 Encounters Encounter Location Date Provider Diagnosis Nikhil Pozo MD [address] [place] [phone] 05/02/2024 Nikhil Pozo Blood tests for routine general physical examination Z00.00 and Vitamin D deficiency E55.9 Nikhil P[address] MD [address] [place] [phone] 10/30/2023 Nikhil Pozo Elevated BP without diagnosis of hypertension R03.0 Nikhil Pozo MD [address] [place] [id number] 05/09/2024 Nikhil Pozo Vitamin D deficiency E55.9 ; Annual physical exam Z00.00 ; Elevated BP without diagnosis of hypertension R03.0 and Depression screening Z13.31 Assessments Encounter Date Diagnosis (ICD Code) Assessment Notes Treatment Notes Treatment Clinical Notes Section Notes 05/02/2024 Blood tests for routine general physical examination (ICD-10 - Z00.00) 05/02/2024 Vitamin D deficiency (ICD-10 - E55.9) 10/30/2023 Elevated BP without diagnosis of hypertension (ICD-10 - R03.0) blood pressure on no treatment is normal. no need for treatment at this time 05/09/2024 Vitamin D deficiency (ICD-10 - E55.9) doing well on 1000 units, will continue current regiment 05/09/2024 Annual physical exam (ICD-10 - Z00.00) labs reviewed and discussed with patient 05/09/2024 Elevated BP without diagnosis of hypertension (ICD-10 - R03.0) will continue to monitor, slight high today 05/09/2024 Depression screening (ICD-10 - Z13.31) negative screen Plan Of Treatment Pending Test Test Name Order Date Electrocardiogram (EKG) 03/01/2018 Future Test Test Name Order Date BONE DENSITY DEXA 03/10/2020 Next Appt Details Provider Name:Nikhil Batista ier, 05/06/2025 07:15:00 AM, [address] [place] [address], [address], [phone], Provider Name:Nikhil Batista ier, 05/13/2025 09:30:00 AM, [address] [place] [address], [place] [address], [place], [place], [phone], Insurance Providers Payer Name Payer Address Payer Phone Subscriber Number Group Number Insured Name Patient Relationship to Insured Coverage Start Date Coverage End Date [facility] [address] [facility] [address] [place] [phone] [id number] Dyana Gordillo Self - patient is the insured Medical (General) History Medical History History ICD Code had abnormal pap smear over 10 years ago bone density done 02/2018 - repeat 2 yea rs 07/29/[address] Natalie vogt 10 yrs
--- OUTSIDE RECORDS SUMMARY | 2024-07-09 07:36 | XMS_ITS ---
Author Organization Nikhil Pozo MD Address [address] [place], [place] [phone] Care Team Providers Care Digital Publishing Specialist Name Role Phone Nikhil Pozo Primary Care Provider Results Component Value Reference Range Notes Complete Blood Count Auto Di ff Reviewed date:05/02/2024 12:25:43 PM Interpretation: Performing Lab:[facility], [address] [place] [phone] Notes/Report: White Blood Count 5.0 4.8-10.8 X10*3/uL [...] NRBC Abs Auto 0.000 0.0-0.012 X10*3/uL Comprehensive [place]. Panel Fa st Reviewed date:05/02/2024 12:19:37 PM Interpretation: Performing Lab:[facility], [address] [place] [phone] Notes/Report: Sodium 142 135-145 mmol/L Potassium 4.1 [...] Panel Reviewed date:05/02/2024 12:20:46 PM Interpretation: Performing Lab:[address] [phone] Notes/Report: Triglycerides 112 <150 mg/dL Desirable Triglyceride: [...] Total Reviewed date:05/02/2024 12:19:16 PM Interpretation: Performing Lab:[address] [phone] Notes/Report: Vitamin D 25-OH Total 60.8 >30 [...] t Reviewed date:05/02/2024 12:27:22 PM Interpretation: Performing Lab:[facility], [address] [place] [phone] Notes/Report: Urine, Clean Catch Color Urine Yellow Appearance Urine Cloudy PH 7.0 5.0-9.0 Glucose Urine UA Negative Negative mg/dL Urine Blood Negative Negative Specific [place] - Urine 1.015 1.005-1.025 Urine Protein Negative Neg-Trace mg/dL Urine Ketones Negative Negative mg/dL Nitrite Urine Negative Negative Leukocyte Esterase Urine Negative Negative RBC Urine 0-2 0-2 /HPF WBC Urine 0-5 0-5 /HPF Squamous Epithelial Cell Urine 0-2 0-2 /HPF Bacteria Urine None Seen None Seen Hyaline Casts Urine 0-2 0-2 /LPF REASON FOR VISIT yearly fasting labs Encounters Encounter Location Date Provider Diagnosis Nikhil Pozo MD [address] [place], [place] [phone] 05/02/2024 Nikhil Pozo Blood tests for routine general physical examination Z00.00 and Vitamin D deficiency E55.9 Assessments Encounter Date Diagnosis (ICD Code) Assessment Notes Treatment Notes Treatment Clinical Notes Section Notes 05/02/2024 Blood tests for routine general physical examination (ICD-10 - Z00.00) 05/02/2024 Vitamin D deficiency (ICD-10 - E55.9) Plan Of Treatment Next Appt Details Provider Name:Nikhil hammond, 05/06/2025 07:15:00 AM, [address], [address], [place], [place], [phone], Provider Name:Nikhil hammond, 05/13/2025 09:30:00 AM, [facility], [address], [place], [place], [phone], Progress Notes * Dyana GORDILLO ADOB:1965 (58 yo F)Acc No.[id number]:05/02/2024 Progress Note Patient:?RAND Dyana Bennett Provider:?Nikhil Pozo MD :1965???Age:58 Y???Sex:Female D ate:05/02/2024 Address:[address] [place], [place] [phone] Subjective: * Chief Complaints: * ???1. Yearly fasting labs. * Medical History:? Objective: * Vitals:? Assessment: * Assessment: 1.?Blood tests for routine g eneral physical examination - Z00.00 (Primary)???2.?Vitamin D deficiency - E55.9??? Plan: * Treatment: 2.?Vitamin D deficiency?LAB: Complete Blood Count Auto Diff (Collection Date & Time - 05/02/2024 07:00 AM) ?LAB: Comprehensive [place]. Panel Fast (Collection Date & Time - 05/02/2024 07:00 AM) ?LAB: Lipid Panel (Collection Date & Time - 05/02/2024 07:00 AM) ?LAB: Vitamin D 25-OH Total (Collection Date & Time - 05/02/2024 07:00 AM) ?LAB: UA ClnCatch+Micro w/rflx Cult (Collection Date & Time - 05/02/2024 07:00 AM) * Procedure Codes:?44783 VENIP UNCT, ROUTINE* * * The named appointment provid er may or may not be the originator of this progress note, and it is not deemed complete until electronically signed by the appointment provider. Sign off status: Pending * Provider:?Nikhil Pozo MD Date:?1 07/03/2023 Generated for Tanesha tirado/Ibis/Manjuitting on:?07/09/2024 07:36 AM EST
--- OUTSIDE RECORDS SUMMARY | 2024-07-09 07:37 | XMS_ITS ---
Author Organization Nikhil Pozo MD Address [address] [place] [phone] Care Team Providers Care Ear Machine Operator Name Role Phone Nikhil Pozo Primary Care Provider Allergies No Known Allergies REASON FOR VISIT annual visit Medications Medication SIG (Take, Route, Frequency, Duration) Notes Start Date End Date Status Meloxicam 15 MG 1 tablet Orally Once a day Active Vitamin D3 25 MCG (1000 UT) TAKE 1 TABLET BY MOUTH EVERY DAY FOR 30 DAYS for 30 Active Social History Tobacco Use: Social History Observation [...] ast year? No Points 0 Interpretation Negative Vital Signs Blood pressure systolic 142 mm Hg 05/09/20 24 Blood pressure diastolic 84 mm Hg 024 Height 62 in 05/09/2024 Weight 148 lbs 05/09/2024 BMI 27.07 kg/m2 05/09/2024 weight is down 2 pounds [facility] e 10-30-23 Encounters Encounter Location Date Provider Diagnosis Nikhil Pozo MD [address] [place] [phone] 05/09/2024 Nikhil Pozo Vitamin D deficiency E55.9 ; Annual physical exam Z00.00 ; Elevated BP without diagnosis of hypertension R03.0 and Depression screening Z13.31 Assessments Encounter Date Diagnosis (ICD Code) Assessment Notes Treatment Notes Treatment Clinical Notes Section Notes 05/09/2024 Vitamin D deficiency (ICD-10 - E55.9) doing well on 1000 units, will continue current regiment 05/09/2024 Annual physical exam (ICD-10 - Z00.00) labs reviewed and discussed with patient 05/09/2024 Elevated BP without diagnosis of hypertension (ICD-10 - R03.0) will continue to monitor, slight high today 05/09/2024 Depression screening (ICD-10 - Z13.31) negative screen Plan Of Treatment Treatment Notes Assessment Notes Vitamin D deficiency doing well on 1000 units, will continue current regiment Annual physical exam labs reviewed and d iscussed with patient Elevated BP without diagnosi s of hypertension will continue to monitor, slight high today Depression screening negative screen Next Appt Details Follow Up: 1 Year, Reason: Provider Name:Nikhil hammond, 05/06/2025 07:15:00 AM, [address] [place] [address], [address], [phone], Provider Name:Nikhil hammond, 05/13/2025 09:30:00 AM, [address] [place] [address], [place] [address], [place], [place], [phone], Progress Notes * Dyana GORDILLO ADOB:1965 (58 yo F)Acc No.[id number]:05/09/2024 Progress Notes Patient:Dyana Guerrero Provider:?Nikhil Pozo MD :1965???Age:58 Y???Sex:Female D ate:05/09/2024 Address:[address] [place], [place] [phone] Subjective: * Chief Complaints: * ???Annual visit * HPI: ???Depression Screening:?PHQ-9?Little interest or pleasure in doing things?Not at all,?Feeling down, depressed, or hopeless?Not at all,?Trouble falling or staying asleep, or sleeping too much?Not at all,?Feeling tired or having little energy?Not at all,?Poor appetite or overeating?Not at all,?Feeling bad about yourself or that you are a failure, or have let yourself or your family down?Not at all,?Trouble concentrating on things, such as reading the newspaper or watching television?Not at all,?Moving or speaking so slowly that other people could have noticed; or the opposite, being so fidgety or restless that you have been moving around a lot more than usual?Not at all,?Thoughts that you would be better off or of hurting yourself in some way?Not at all,?Total Score?0.?Interpretation and Intervention?Depression Screening Findings?Negative,?Follow-Up for Depression?: review of PHQ-9 found negative result, no follow-up needed.?Communication Needs:?Communication Needs?Does the patient have a hearing impairment?No,?Does the patient have a vision impairment??Yes,?If yes, what is the vision impairment??Glasses,?Does the patient have a cognition impairment??No.?SDOH Questions:?SDOH Questions?In the past year have you been worried about losing housing??No,?In the past year have you or any family members you live with been unable to get any of the following when it was really needed? Check all that apply:?None.? * ROS:?General/Constitutional:?Change in appetite?denies.?Chills?denies.?Fever?denies.?Ophthalmologic:?Blurred vision?denies.?Discharge?denies.?Pain?denies.?ENT:?Decreased hearing?denies.?Sore throat?denies.?Swollen glands?denies.?Endocrine:?Cold intolerance?denies.?Excessive thirst?denies.?Heat intolerance?denies.?Weight loss?denies.?Respiratory:?Cough?denies.?Shortness of breath at rest?denies.?Shortness of breath with exertion?denies.?Wheezing?denies.?Cardiovascular:?Chest pain at rest?denies.?Chest pain with exertion?denies.?Irregular heartbeat?denies.?Shortness of breath?denies.?Gastrointestinal:?Abdominal pain?denies.?Change in bowel habits?denies.?Diarrhea?denies.?Nausea?denies.?Rectal bleeding?denies.?Vomiting?denies .?Genitourinary:?Blood in urine?denies.?Difficulty urinating?denies.?Frequent urination?denies.?Urinary incontinence?Denies.?Musculoskeletal:?Painful joints?denies.?Weakness?denies.?Skin:?Dry skin?denies.?Itching?denies.?Denies?Mole(s),? changes in moles, new moles or any lesions of concern.?Denies?Photosensitivity.?Rash?denies.?Neurologic:?Dizziness?denies.?Fainting?denies.?Headache?denies.? * Medical History:? * Surgical History:? * Hospitalization/Major Diagno stic Procedure:? * Family History:?Father: ji kellogg 77 yrs, diagnosed with Hypertension.?Mother: alive 74 yrs, diagnosed with COPD.?3 brother(s) - healthy. 1 son(s) , 1 daughter(s) - healthy. .? granddaughter (1 1/2 months old), Denies mental health/substance abuse family history, Denies mental health/substance abuse family history, Denies mental health/substance abuse family history, Denies mental health/substance abuse family history, No pertinent family medical history. * Social History:?Tobacco Use:?Tobacco Use/Smoking?Patient is a?nonsmoker,?Additional Findings: Tobacco Non-User?Current non-smoker, currently using no form of tobacco.?Drugs/Alcohol:?Alcohol Screen?Did you have a drink containing alcohol in the past year??No,?Points?0,?Interpretation?Negative.?Miscellaneous:?Caffeine: 1-2 cups per day; regular coke. Children: 2 children; 25 and 24. Community involvements: none. no Exercise. Home smoke detector use: smoke detectors, carbon monoxide detector (not working at this time). Housing: owning. Living with: spouse. Marital status: . Occupation: works full-time, and has a part-time job. Pets: 1 cat and 1 dog. no Travel outside of the [place]. * Medications:?TakingMeloxicam 15 MG Tablet 1 tablet Orally Once a dayVitamin D3 25 MCG (1000 UT) Tablet TAKE 1 TABLET BY MOUTH EVERY DAY FOR 30 DAYS Taking Meloxicam 15 MG Tablet 1 tablet Orally Once a dayTaking Vitamin D3 25 MCG (1000 UT) Tablet TAKE 1 TABLET BY MOUTH EVERY DAY FOR 30 DAYS * Allergies:?N.K.D.A.yes[Amari martinez Verified] Objective: * Vitals:?Ht: 62, Wt:148, BMI: 27.07, BP:142/84, Repeat BP:120/86 weight is down 2 pounds since 10-30-23. * ???Past Orders: ???Lab:Lipid Panel (Order Da te 05/02/2024) (Collection Date - 05/02/2024) ? Value Reference Range ?Triglycerides 112 <150 - mg/dL ?Cholesterol 220 H <200 - m g/dL ?LDL Cholesterol Calculated 147 H <100 - mg/dL ?HDL Cholesterol 51 >40 - mg/dL ???Lab:Vitamin D 25-OH Total (Order Date - 05/02/2024) (Collection Date - 05/02/2024) ? Value Reference Range ?Vitamin D 25-OH Total 60.8 >30 - ng/mL ???Lab:UA ClnCatch+Micro w/r flx Cult (Order Date - 05/02/2024) (Collection Date - 05/02/2024) ? Value Reference Range ?Color Urine Yellow - ?Appearance Urine Cloudy - ?PH 7.0 5.0-9.0 - ?Glucose Urine UA Negative Neg ative - mg/dL ?Urine Blood Negative Negative - ?Specific Marked Tree - Urine 1.015 1.005-1.025 - ?Urine Protein Negative Neg-Tr nick - mg/dL ?Urine Ketones Negative Negati ve - mg/dL ?Nitrite Urine Negative Negati ve - ?Leukocyte Esterase Urine Negative Negative - ?RBC Urine 0-2 0-2 - /HPF ?WBC Urine 0-5 0-5 - /HPF ?Squamous Epithelial Cell Urine 0-2 0-2 - /HPF ?Bacteria Urine None Seen None Seen - ?Hyaline Casts Urine 0-2 0-2 - /LPF ???Lab:Complete Blood Count Auto Diff (Order Date - 05/02/2024) (Collection Date - 05/02/2024) ? Value Reference Range ?White Blood Count 5.0 4. 8-10.8 - X10*3/uL ?Red Blood Count 4.22 4.20 -5.50 - X10*6/uL ?Hemoglobin 13.2 12.0-16.0 - g/dl ?Hematocrit 39.1 37.0-47.0 - % ?Mean Corpuscular Volume 92.7 80.0-98.0 - fL ?Mean Corpuscular Hemoglobin 31.3 27.0-33.0 - pg ?Mean Corpuscular HGB Conc 33.8 31.0-35.0 - g/dl ?Red Cell Distribution Width 12.8 11.0-16.0 - % ?Platelet Count 287 160-4 00 - X10*3/uL ?Mean Platelet Volume 10.6 9.4-12.3 - fL ?Neutrophils Percent Auto 44.1 L 45-73 - % ?Imm Gran Pct Auto 0.2 0. 0-0.4 - % ?Lymphocytes Percent Auto 42.3 H 20-40 - % ?Monocytes Percent Auto 9.2 2-11 - % ?Eosinophils Percent Auto 3.4 0-4 - % ?Basophils Percent Auto 0.8 0-2 - % ?NRBC Pct Auto 0.0 0.0-0. 2 - /100WBC ?Neutrophils Absolute Auto 2.2 2.0-8.3 - x10*3/uL ?Imm Gran Abs Auto 0.01 0. 00-0.03 - X10*3/uL ?Lymphocytes Absolute Auto 2.1 1.2-4.9 - X10*3/uL ?Monocytes Absolute Auto 0.5 0.1-1.2 - X10*3/uL ?Eosinophils Absolute Auto 0.2 0.0-0.4 - X10*3/uL ?Basophils Absolute Auto 0.0 0.0-0.2 - X10*3/uL ?NRBC Abs Auto 0.000 0.0-0. 012 - X10*3/uL ???Lab:Comprehensive [place]. P cathy Fast (Order Date - 05/02/2024) (Collection Date - 05/02/2024) ? Value Reference Range ?Sodium 142 135-145 - mmo l/L ?Bilirubin Total 1.1 H 0.0- 1.0 - mg/dL ?Aspartate Amino Transferase 25 5-31 - U/L ?Alanine Aminotransferase 16 0-31 - U/L ?Total Protein 7.1 6.5-8. 0 - g/dL ?Albumin Level 4.4 3.5-5. 0 - g/dL ?Alkaline Phosphatase 62 39-117 - U/L ?Potassium 4.1 3.3-5.1 - mmol/L ?Chloride 107 96-108 - mm ol/L ?Carbon Dioxide 30 H 22-29 - mmol/L ?Anion Gap 9 L 12-20 - ?Blood Urea Nitrogen 15 9-16 - mg/dL ?Creatinine 0.83 0.5-1.4 - mg/dL ?Estimated Glomerular Filt Rate > 60 - ?Glucose Fasting 95 60-9 9 - mg/dL ?Calcium 9.1 8.4-10.2 - m g/dL * Examination: ???General Examination: ?GENERAL APPEARANCE:?well developed, well nourished, in no acute distress.?HEAD:?normocephalic, atraumatic.?EYES:?pupils equal, round, reactive to light and accommodation, sclera non-icteric.?EARS:?normal.?ORAL CAVITY:?mucosa moist.?THROAT:?clear.?NECK/THYROID:?neck supple, full range of motion, no cervical lymphadenopathy, no bruits.?SKIN:?warm and dry, no suspicious lesions.?HEART:?regular rate and rhythm, S1, S2 normal, no murmurs.?LUNGS:?clear to auscultation bilaterally.?BREASTS:?done by board operator.?ABDOMEN:?soft, nontender, nondistended, bowel sounds present, normal, no organomegaly , no masses palpable.?RECTAL EXAM:?done by board operator.?FEMALE GENITOURINARY:?done by board operator.?EXTREMITIES:?no clubbing, cyanosis, or edema/ , abnormal rt thumb with a nodule that is movable.?NEUROLOGIC:?nonfocal, motor strength normal upper and lower extremities, sensory exam intact.? Assessment: * Assessment: 1.?Annual physical exam - Z0 0.00 (Primary)?2.?Vitamin D deficiency - E55.9?3.?Elevated BP without diagnosis of hypertension - R03.0?4.?Depression screening - Z13.31? Plan: * Treatment: 2.?Vitamin D deficiency? Notes: doing well on 1000 units, will continue current regiment?? 3.?Elevated BP without diagn osis of hypertension? Notes: will continue to monitor, slight high today?? 4.?Depression screening? Notes: negative screen?? * Procedure Codes:? * Preventive Medicine:? ??Counseling:?Care goal follow-up plan:?Counseling for abnormal BMI provided?Yes,?Above Normal BMI Follow-up?Giving encouragement to exercise.? * Follow Up:?1 Year * * Sign off status: Completed true * Provider:?Nikhil Pozo MD Date:?1 07/10/2023 Generated for Tanesha tirado/[employer]/eTransmitting on:?07/09/2024 07:36 AM EST History and Physical Notes * HPI (History of Present Illness) Category Sub-Category Detail Notes Category Not es Depression Screening PHQ-9 Little inte rest or pleasure in doing things: Not at all Feeling down, depressed, or hopeless: No t at all Trouble falling or staying asleep, or sl eeping too much: Not at all Feeling tired or having little energy: N ot at all Poor appetite or overeating: Not at all Feeling bad about yourself o r that you are a failure, or have let yourself or your family down: Not at all Trouble concentrating on thi ngs, such as reading the newspaper or watching television: Not at all Moving or speaking so slowly that other people could have noticed; or the opposite, being so fidgety or restless that you have been moving around a lot more than usual: Not at all Thoughts that you would be b vivian off or of hurting yourself in some way: Not at all Total Score: 0 Interpretation and Intervention Depression Jovany piña Findings: Negative Follow-Up for Depression: : review of PH Q-9 found negative result, no follow-up needed SDOH Questions SDOH Questions In the past year have you been worried about losing housing?: No In the past year have you or any family members you live with been unable to get any of the following when it was really needed? Check all that apply:: None Communication Needs Communication Needs Does the patient have a hearing impairment: No Does the patient have a vision impairmen t?: Yes ?If yes, what is the vision impairment?: Glasses Does the patient have a cognition impair ment?: No Examination Category Sub-Category Detail Notes Category Not es General Examination GENERAL APPEARANCE: well dev eloped, well nourished, in no acute distress HEAD: normocephalic, atrau matic EYES: pupils equal, round, reactive to light and accommodation, sclera non- icteric EARS: normal THROAT: clear NECK/THYROID: neck supple, full ra nge of motion, no cervical lymphadenopathy, no bruits HEART: regular rate and rhy thm, S1, S2 normal, no murmurs LUNGS: clear to auscultatio n bilaterally ABDOMEN: soft, nontender, non distended, bowel sounds present, normal, no organomegaly , no masses palpable NEUROLOGIC: nonfocal, motor stre ngth normal upper and lower extremities, sensory exam intact SKIN: warm and dry, no danica picious lesions EXTREMITIES: no clubbing, cyanosi s, or edema/ , abnormal rt thumb with a nodule that is movable BREASTS: done by board operator RECTAL EXAM: done by board operator FEMALE GENITOURINARY: done by board operator ORAL CAVITY: mucosa moist
== END 2024-07-09 07:35 | disposition home or self-care (01) ==
LOC: HO.MAMMO 07:34
PROVIDERS: PCP Internal Medicine; Visit Provider Internal Medicine
DX: Z12.31 Encounter for screening mammogram for malignant neoplasm of breast (principal)
CPT/HCPCS: 77063; 77067

== ENCOUNTER → 2024-07-09 07:45 | Outpatient (BNV) | payer OTHER, SELFPAY | PROVIDERS: PCP Internal Medicine; Visit Provider Internal Medicine | DX: Z12.31 Encounter for screening mammogram for malignant neoplasm of breast (principal) | CPT/HCPCS: 77063; 77067 ==